=== PATIENT | female | born 1965 | race Caucasian/White ===

== ENCOUNTER → 2016-11-30 | Outpatient (CLI) | payer OTHER ==
[~2016-11-30] MED LIST: ALBUTEROL17 GM INH; ALBUTEROL20 ml INH; AZITHROMYCIN1 GM PO; CIPRO PO; CLARITIN10 M2 PO; DESYREL50 MG PO; DICLOFENAC PO; DITROPAN5 MG DOB; DYRENIUM100 MG PO; FLEXERIL PO; FLEXERIL10 M1 PO; FLEXERIL10 MG PO; FLUOXETINE HCL20 M1 PO; HYDROCODON-ACE1 EAC5 PO; HYDROCODONE/APA1 T16 PO; KEFLEX PO; MORPHINE SULFAT15 MG PO; NEURONTIN PO; NEURONTIN600 MG DOB; OMEPRAZOLE20 M1 PO; OMEPRAZOLE20 M2 PO; PRILOSEC PO; PROMETHAZINE D118 ML PO; PROZAC10 M1; SYMBICORT INH; TRIAMTERENE HCT PO; TRIAMTERENE-HC1 EACH PO; VOLTAREN75 MG PO; ZANAFLEX4 M1; [UNRECOGNIZED DRUG - OTHER] PO
--- NOTE | ~2016-11-30 | CT55 ---
[facility] A Service of [facility] & [facility] RADIOLOGY TEXT RESULTS PATIENT: ISIAH MOODY [facility] UN[facility] #: [id number] AGE: [address]: Molina Sinha MD SEX: F ORDER DR: [id number] [facility] [address] [place], [place] [address] [id number] O MR#: [id number] [facility] #: [id number] NAME: ISIAH MOODY : 1965 SEX: F STUDY DATE/TIME: 11/30/2016 8:58 UNIT: [facility] ROOM: STUDY DESCRIPTION: CT Chest W Con Attending Physician: Molina Sinha M.D. Referring Physician: Mikey Vora M.D. Ordering Physician: Molina Sinha M.D. Primary Care Physician: Leonard Albrecht M.D. MEDICAL IMAGING REPORT This report is preliminary unless electronic signature is present EXAM CT chest with contrast. HISTORY 51-year-old female history of supraglottic cancer, difficulty swallowing for 4-5 months, cough and congestion for 4-[address] chest, 01/14/2014. TECHNIQUE Axial images performed through the chest following IV contrast. 3-D coronal and sagittal reconstructed images reviewed at a workstation. This CT exam was performed with one or more of the following radiation dose reduction techniques: automatic exposure control, adjustment of mA and/or kV according to patient size, and iterative reconstruction. FINDINGS There is pulmonary hyperinflation and patchy hyperlucency with cystic areas, particularly in the lung apices compatible with underlying emphysema. There are too numerous to count, scattered parenchymal calcifications compatible with prior granulomatous disease. In the superior segment of the right lower lobe, there is a 5.6 mm noncalcified pulmonary nodule which has shown interval increase when compared to the December 2013 study. This has shown only minimal increase in size and may reflect benign disease but continued observation and followup is recommended. Trachea and bronchi unremarkable. There is a 1.2 x 1.9 cm left paratracheal lymph node which does not appear significantly increased from the December 2013 study. There are also a small amount of pretracheal lymph nodes, but none appear pathologically enlarged. Upper abdomen remarkable for a 1.3 x 1.5 cm left adrenal lesion which appears unchanged and is compatible with a benign adenoma. Osseous structures show mild STS. [facility] A Service of [facility] RADIOLOGY TEXT RESULTS PATIENT: ISIAH MOODY LOCATION: [facility] : 61 UNIT #: [id number] AGE: [address]: Molina Sinha MD SEX: F ORDER DR: degenerative change of the thoracic spine. The thoracic inlet unremarkable. There are a few small axillary lymph nodes unchanged from prior studies. IMPRESSION 1. Mild to moderate centrilobular emphysema. 2. 5.6 mm noncalcified nodule posterior aspect superior segment right lower lobe which has shown incremental increase from the December 2013 study. I suspect this represents a benign pathology given the patient's extensive granulomatous changes, but continued observation and followup is recommended. 3. Stable mediastinal lymphadenopathy. 4. Stable left adrenal nodule. Dictated by... Janay Medel M.D. THIS IS AN ELECTRONICALLY VERIFIED REPORT Janay Medel M.D. at 11/30/2016 3:58 PM KEE/marta TD: 11/30/2016 13:44 JOB #: [id number] MEDICAL IMAGING REPORT COPY
--- NOTE | ~2016-11-30 | CT114 ---
[facility] A Service of [facility] & [facility] RADIOLOGY TEXT RESULTS PATIENT: ISIAH MOODY [facility] UN[facility] #: [id number] AGE: [address]: Molina Sinha MD SEX: F ORDER DR: [id number] [facility] [address] [place], [place] [address] [id number] O MR#: [id number] Acc #: [id number] NAME: ISIAH MOODY : 1965 SEX: F STUDY DATE/TIME: 11/30/2016 8:58 UNIT: [facility] ROOM: STUDY DESCRIPTION: CT Soft Tissue Neck W Cont Attending Physician: Molina Sinha M.D. Referring Physician: Nino Vora Ordering Physician: Molina Sinha M.D. Primary Care Physician: Leonard Albrecht M.D. MEDICAL IMAGING REPORT This report is preliminary unless electronic signature is present EXAM CT neck soft tissue with contrast. 11/30/[address] neck soft tissue with contrast 04/08/2015. HISTORY Difficulty swallowing for 4-5 months, cough and congestion for 4-5 months. Laryngeal carcinoma. This CT exam was performed with one or more of the following radiation dose reduction techniques: automatic exposure control, adjustment of mA and/or kV according to patient size, and iterative reconstruction. FINDINGS CT neck soft tissue was obtained with IV contrast in the axial plane followed by sagittal and coronal reformats. There is fullness in the region of bilateral fossa of Rosenmuller and to a lesser degree in the eustachian tube orifice region. It is probably related to pooled secretions. There is a history of laryngeal cancer, but no well-defined space occupying nodule or mass could be clearly identified. Vocal cords are adducted. No asymmetrical thickening is seen. Oropharynx is unremarkable. The hypopharynx demonstrates some prominence of tissue extending from the posterior aspect of the floor of the mouth into bilaterally valleculae, nonspecific. Well-defined aerated valleculae are not seen. Piriform sinuses are well aerated. Trachea is unremarkable. There are small lymph nodes scattered in the neck, relatively large 1 cm left level 2A (1.4 cm), right level 2A (1.3 cm). These are not enlarged by size criteria. Bilateral parapharyngeal space, athletic trainer space, parotid space, retropharyngeal space, thyroid gland, submental space, sublingual space are unremarkable. Degenerative changes are noted in the cervical spine involving the disc and facet joints. There is a left paratracheal STS. [facility] A Service of [facility] RADIOLOGY TEXT RESULTS PATIENT: ISIAH MOODY LOCATION: [facility] : 61 UNIT #: [id number] AGE: [address]: Molina Sinha MD SEX: F ORDER DR: soft tissue density suspicious for a lymph node. It measures 2.6 x 1.2 cm and it is stable in the last two years favoring benignity. Imaged lungs demonstrate emphysematous changes and minimal alveolar density in the right upper lobe. Calcified lung nodules are scattered in the right upper lobe relating to old granulomatous disease. IMPRESSION 1. Vocal cords are adducted. No asymmetrical prominent soft tissue is identified in the larynx to suggest malignancy. There is a history of laryngeal cancer, but the exact location is not given, nor is there a prior study demonstrating it. The CT neck soft tissue from 04/07/2015 does not demonstrate any mass either. 2. There is some asymmetrical fullness and incomplete aeration of bilateral valleculae. This could be related to lymphatic hyperplasia extending from the posterior aspect of the floor of the mouth into the bilateral valleculae. A lesion in the hypopharynx cannot be excluded. 3. No enlarged lymph nodes. 4. There is some soft tissue noted in the left lateral and paratracheal region of the mediastinum measuring 2.6 x 1.2 cm suspicious for a lymph node. It is stable when compared to the prior study favoring benignity. 5. Degenerative changes in the cervical spine. Dictated by... Luiz Bynum M.D. THIS IS AN ELECTRONICALLY VERIFIED REPORT Luiz Bynum M.D. at 12/01/2016 3:39 PM CPR/dj TD: 11/30/2016 13:52 JOB #: [id number] MEDICAL IMAGING REPORT COPY
== END | disposition home or self-care (01) ==
LOC: CCAT 08:27
DX: C32.1 Malignant neoplasm of supraglottis (principal); J43.2 Centrilobular emphysema; R91.1 Solitary pulmonary nodule; R59.0 Localized enlarged lymph nodes; E27.8 Other specified disorders of adrenal gland; J38.3 Other diseases of vocal cords; M47.812 Spondylosis without myelopathy or radiculopathy, cervical region
CPT/HCPCS: 70491; 71260; Q9967

== ENCOUNTER 2017-03-03 23:45 | Emergency (ER) | payer OTHER ==
--- NOTE | ~2017-03-03 | CT2 ---
[facility] A Service of [facility] RADIOLOGY TEXT RESULTS PATIENT: ISIAH MOODY LOCATION: [facility] : 61 UNIT #: [id number] AGE: [address]: Mariusz Giron MD SEX: F ORDER DR: [id number] [facility] [address] [place], [place] [address] [id number] E MR#: [id number] Acc #: [id number] NAME: ISIAH MOODY : 1965 SEX: F STUDY DATE/TIME: 03/04/2017 4:10 UNIT: [facility] ROOM: STUDY DESCRIPTION: CT Abd and Pelv W Cont Attending Physician: Mariusz Giron M.D. Ordering Physician: Mariusz Giron M.D. Primary Care Physician: Leonard Albrecht M.D. MEDICAL IMAGING REPORT This report is preliminary unless electronic signature is present EXAM CT abdomen and pelvis with contrast, 03/04/2017. HISTORY 52-year-old female in the ED complaining of 1-day history of cramping, abdominal pain, and bloating. Pain and gastrostomy tube site. TECHNIQUE CT examination of the abdomen and pelvis was performed with oral and IV contrast. This CT exam was performed with one or more of the following radiation dose reduction techniques: automatic exposure control, adjustment of mA and/or kV according to patient size, and iterative reconstruction. FINDINGS ABDOMEN FINDINGS: The gastrostomy tube appears well positioned within the stomach. There is some soft tissue thickening and surrounding soft tissue stranding within the anterior abdominal wall along the gastrostomy tube track which may indicate soft tissue inflammation. No abscess or other fluid collection. No evidence of contrast leak or free intraperitoneal air. The stomach is nondistended. Liver, pancreas, spleen and kidneys are within normal limits. No bile duct or pancreatic duct dilatation. Normal-caliber abdominal aorta. Small bowel and colon are normal in caliber and appearance. PELVIS FINDINGS: Hysterectomy. Bladder and rectum are within normal limits. No inguinal hernia. Limited lung base images show no active disease in the lower chest. IMPRESSION [facility] A Service of [facility] RADIOLOGY TEXT RESULTS PATIENT: ISIAH MOODY LOCATION: [facility] : 61 UNIT #: [id number] AGE: [address]: Mariusz Giron MD SEX: F ORDER DR: 1. Well-positioned gastrostomy tube within decompressed stomach. There is some soft tissue thickening and surrounding soft tissue stranding along the gastrostomy tube track in the anterior abdominal wall suggesting soft tissue inflammation. No evidence of abscess, contrast leak, or intraperitoneal free air. 2. Hysterectomy. 3. Remainder of the examination is negative. Dictated by... Zeeshan Doty M.D. THIS IS AN ELECTRONICALLY VERIFIED REPORT Zeeshan Doty M.D. at 03/04/2017 9:56 PM DENISSE/marta TD: 03/04/2017 12:22 JOB #: [id number] MEDICAL IMAGING REPORT Page 1 of 1 COPY
[2017-03-04 02:34] LABS: URINE SOURCE CLEAN CATCH
[2017-03-04 02:37] LABS: BASOPHIL% 0.4 % (0-2.5); EOSINOPHIL# 0.2 X10e3 (0-0.7); HEMATOCRIT 44.8 % (35.0-45.0); HEMOGLOBIN 15.3 gm/dL (12.0-16.0); LYMPHOCYTE# 0.7 X10e3 (1.0-3.5); LYMPHOCYTE% 10.9 % (17.0-45.0); MEAN CELL VOLUME 99.1 FL (83-96); MEAN CORPUSCULAR HEMOGLOBIN 33.7 PG (28-34); MEAN PLATELET VOLUME 10.1 FL (6.5-11.5); MONOCYTE# 0.6 X10e3 (0-1.0); MONOCYTE% 9.8 % (3.0-12.0); NEUTROPHIL# 4.5 X10e3 (1.5-7.1); NEUTROPHIL% 74.9 % (40-75); PLATELET COUNT 104 X10e3 (140-420); RED BLOOD COUNT 4.53 X10e (3.90-5.30); RED CELL DISTRIBUTION WIDTH 14.7 % (11.0-15.5)
[2017-03-04 02:38] LABS: URINE APPEARANCE CLOUDY; URINE BILIRUBIN NEG (NEG); URINE BLOOD NEG (NEG); URINE COLOR DK YELLOW; URINE GLUCOSE NEG (NEG); URINE KETONE 1+ (NEG); URINE LEUKOCYTE ESTERASE TRACE (NEG); URINE NITRATE NEG (NEG); URINE PROTEIN TRACE (NEG); URINE SPECIFIC GRAVITY 1.038 (1.003-1.035)
[2017-03-04 02:40] LABS: CULTURE INDICATED? YES; URINE BACTERIA AUWI 1+ (NEGATIVE); URINE SQUAMOUS EPITHELIAL CELL FEW /[HPF]
[2017-03-04 02:41] LABS: DIFF IND NO
[2017-03-04 03:00] LABS: ALBUMIN SERUM 3.9 g/dL (3.5-5.0); BILIRUBIN, DIRECT 0.1 mg/dL (0.0-0.2); BILIRUBIN,INDIRECT 0.6 mg/dL (0.0-0.9); BILIRUBIN,TOTAL 0.7 mg/dL (0.2-2.0); CALCIUM SERUM 9.2 mg/dL (8.4-10.2); CREATININE SERUM 0.4 mg/dL (0.6-1.4); GLOM FILT RATE Estimated 118.1 mL/min (>60); POTASSIUM 3.1 mmol/L (3.5-5.1); PROTEIN TOTAL SERUM 6.6 g/dL (6.0-8.3)
== END 2017-03-04 05:40 | disposition home or self-care (01) ==
LOC: CED 23:45
PROVIDERS: Emergency Medicine
DX: N30.00 Acute cystitis without hematuria (principal); J44.9 Chronic obstructive pulmonary disease, unspecified; F17.200 Nicotine dependence, unspecified, uncomplicated; Z88.2 Allergy status to sulfonamides; Z88.0 Allergy status to penicillin; Z88.6 Allergy status to analgesic agent; Z88.8 Allergy status to other drugs, medicaments and biological substances
CPT/HCPCS: 36415; 74177; 80048; 80076; 81003; 82150; 83690; 85025; 87086; 96361; 96374; 96375; 99284; J2270; J2405; Q9967

== ENCOUNTER → 2017-04-04 | Outpatient (CLI) | payer OTHER ==
--- NOTE | ~2017-04-04 | CT114 ---
[facility] A Service of [facility] & [facility] RADIOLOGY TEXT RESULTS PATIENT: ISIAH MOODY [facility] 61 UNIT #: [id number] AGE: [address]: Molina Sinha MD SEX: F ORDER DR: [id number] [facility] [address] [place], [place] [address] [id number] O MR#: [id number] Acc #: [id number] NAME: ISIAH MOODY : 1965 SEX: F STUDY DATE/TIME: 04/04/2017 13:48 UNIT: [facility] ROOM: STUDY DESCRIPTION: CT Soft Tissue Neck W Cont Attending Physician: Molina Sinha M.D. Referring Physician: Molina Sinha M.D. Ordering Physician: Molina Sinha M.D. Primary Care Physician: Ramon Aleman Jr., A.P.R.N. MEDICAL IMAGING REPORT This report is preliminary unless electronic signature is present EXAM Soft tissue neck CT with contrast. DATE OF STUDY 04/04/2017 PROCEDURE Axial contrast-enhanced soft tissue neck CT with multiplanar reformats. This CT exam was performed with one or more of the following radiation dose reduction techniques: automatic exposure control, adjustment of mA and/or kV according to patient size, and iterative reconstruction. COMPARISON Prior CT dated 11/30/2016 and older CTs dating back to at least 04/07/2015. CLINICAL HISTORY History of laryngeal cancer. No new symptoms, restaging exam. FINDINGS There is no suspicious mass or suspicious adenopathy. Slight laryngeal mucosal, fairly circumferential thickening may be result of prior therapy, but no discrete mass is seen. There is slight plaque at each carotid bifurcation, but 0% stenosis in both internal carotids by NASCET criteria. The jugular veins and other vascula structures are normal. There is increased soft tissue fullness in the AP window when compared to the prior study. Previously measured soft tissue fullness in this region was about 2.6 x 1.2 cm, and what appeared to probably represent 2 separate small rosa elena structures on the prior study shows less physical separation on the current exam though the difference is slight. Radiographically mild or [id number] emphysematous changes in the STS. [facility] A Service of [facility] & [facility] RADIOLOGY TEXT RESULTS PATIENT: ISIAH MOODY LOCATION: [facility] : 61 UNIT #: [id number] AGE: [address]: Molina Sinha MD SEX: F ORDER DR: lung apices are redemonstrated. There are spinal degenerative changes but there is no bone erosion or destruction. IMPRESSION 1. Very slight increase in fullness in the AP window. There is probably no new soft tissue, though what previously appeared to be a paratracheal and AP window node that were slightly physically separate, now appears slightly more confluent, though whether this represents a change or simply slight healing is less certain. Again, there has been no change in overall soft tissue fullness in this region. 2. No suspicious adenopathy is seen. If fact, a single left jugular chain lymph node which previously measured about 14 mm in maximal dimension now measures about 7 mm in maximal dimension. Slight persistent laryngeal mucosal edema, no change since the prior study. Emphysematous changes in the lung apices are stable as well and no new abnormality is seen. Dictated by... Shane Mccarthy M.D. THIS IS AN ELECTRONICALLY VERIFIED REPORT Shane Mccarthy M.D. at 04/11/2017 10:35 AM REKHA/marta TD: 04/05/2017 10:41 JOB #: [id number] MEDICAL IMAGING REPORT Page 1 of 1 COPY
--- NOTE | ~2017-04-04 | CT55 ---
[facility] A Service of [facility] RADIOLOGY TEXT RESULTS PATIENT: ISIAH MOODY [facility] UNIT #: [id number] AGE: [address]: Molina Sinha MD SEX: F ORDER DR: [id number] [facility] [address] [place], [place] [address] [id number] O MR#: [id number] [facility] #: [id number] NAME: ISIAH MOODY : 1965 SEX: F STUDY DATE/TIME: 04/04/2017 13:48 UNIT: [facility] ROOM: STUDY DESCRIPTION: CT Chest W Con Attending Physician: Molina Sinha M.D. Referring Physician: Molina Sinha M.D. Ordering Physician: Molina Sinha M.D. Primary Care Physician: Ramon Aleman Jr., A.P.R.N. MEDICAL IMAGING REPORT This report is preliminary unless electronic signature is present EXAM CT chest with contrast, 04/04/2017 13:48 hours CLINICAL HISTORY 52-year-old with history of subglottic cancer status post radiation therapy from November through January [address] Followup lung nodule. COMPARISON Chest CT, 11/30/[address] images were obtained from the thoracic inlet through the adrenal glands. Sagittal and coronal reconstructions were performed. Contrast was Isovue-370, 100 mL IV. Total exam DLP for the neck and chest CT is 824 mGy-cm. This CT exam was performed with one or more of the following radiation dose reduction techniques: automatic exposure control, adjustment of mA and/or kV according to patient size, and iterative reconstruction. FINDINGS Images through the thoracic inlet demonstrate no thyroid mass or adenopathy. Images through the chest demonstrate persistent soft tissue density in the aorticopulmonary window which is not as well defined as on the prior study. Density measures up to 2.6 x 1.7 cm which measures larger than on 11/30/2016 where a discrete nodule measuring 2.0 x 1.2 is seen however given the poorly defined margins this could represent evolving postradiation change rather than truly increasing lymph node. No pathologic nodes are seen elsewhere in the mediastinum or bebeto. The cardiac chambers, pericardium and aorta are normal. The esophagus is STS. [facility] A Service of [facility] RADIOLOGY TEXT RESULTS PATIENT: ISIAH MOODY LOCATION: [facility] : 61 UNIT #: [id number] AGE: [address]: Molina Sinha MD SEX: F ORDER DR: normal. The lungs again demonstrate innumerable calcified granulomata in the periphery of both lungs. There is a noncalcified well-circumscribed nodule in the superior segment right lower lobe on image 20 measuring 5.0 mm unchanged from prior study. Benign etiology is favored such as a noncalcified granuloma particularly given the extensive calcified granulomatous changes present. The liver, spleen and pancreas are normal. The gallbladder is partially imaged and appears normal. There is a stable low-density left adrenal nodule measuring 1.6 x 1.2 cm. A gastrostomy tube is present in the stomach. IMPRESSION 1. There is persistent soft tissue density in the aorticopulmonary window which appears slightly larger but more poorly defined than on the prior exam. This could represent postradiation change or true increase in size of the node. This is indeterminate. 2. Innumerable tiny calcified pulmonary parenchymal nodules in both lungs consistent with multiple granulomata. There is a stable 5.0 mm noncalcified nodule in the superior segment right lower lobe. Given the innumerable nodules bilaterally which are calcified, noncalcified granuloma is favored over metastasis but continued CT surveillance in 6-12 months is recommended. Dictated by... Rachael Hernandez M.D. THIS IS AN ELECTRONICALLY VERIFIED REPORT Rachael Hernandez M.D. at 04/05/2017 8:41 PM Leila TD: 04/05/2017 14:44 JOB #: [id number] MEDICAL IMAGING REPORT Page 1 of 1 COPY
[2017-04-04 13:11] LABS: CREATININE SERUM 0.7 mg/dL (0.6-1.4); GLOM FILT RATE Estimated 98.2 mL/min (>60)
== END | disposition home or self-care (01) ==
LOC: CLAB 12:07 → CCAT 12:07
PROVIDERS: Radiology Radiation Oncology
DX: C32.1 Malignant neoplasm of supraglottis (principal)
CPT/HCPCS: 36415; 70491; 71260; 82565; Q9967